=== PATIENT | female | born 1990 | race Hispanic/Latino ===

== ENCOUNTER 2018-08-23 18:42 | Emergency (ER) | payer SELFPAY ==
[2018-08-23 19:47] LABS: Absolute Lymphocytes (CBC) 2.7 K/uL (0.7-4.9); Basophils % 0.5 % (0-1.3); Eosinophils % 0.6 % (0-4.4); Hematocrit 43.3 % (36.0-45.0); MPV 8.9 fL (7.6-11.3); Monocytes % 5.8 % (3.3-12.3); RBC Red Blood Cell Count 4.84 M/uL (3.86-4.86)
[2018-08-23 19:53] LABS: Protime INR 1.07
--- NOTE | 2018-08-23 19:59 | RAD REPORT ---
EXAM DESCRIPTION: RAD - Chest Single View - 08/23/2018 7:19 pm CLINICAL HISTORY: Shortness of breath COMPARISON: None. TECHNIQUE: AP portable chest image was obtained 1917 hour . FINDINGS: Lung volumes are low. Lung dobson are clear. No failure or volume overload. Heart and vasc ulature are normal. No measurable pleural effusion and no pneumothorax. No acute bony abnormality see n. No acute aortic findings suspected. IMPRESSION: No acute cardiopulmonary process.
[2018-08-23 20:06] LABS: Urine Blood TRACE (NEG); Urine Glucose NEGATIVE (NEG); Urine Protein NEGATIVE (NEG)
[2018-08-23 20:10] LABS: ALT/SGPT 32 U/L (12-78); AST/SGOT 14 U/L (15-37); Albumin 3.9 g/dL (3.4-5.0); Alkaline Phosphatase 117 U/L (45-117); BUN Blood Urea Nitrogen 9 mg/dL (7-18); Bicarbonate 27 mmol/L (21-32); Bilirubin Direct 0.1 mg/dL (0-0.2); Bilirubin Total 0.5 mg/dL (0.2-1.0); Glucose Level 83 mg/dL (74-106); NT PRO-BNP 26 pg/mL (<125); Potassium 3.9 mmol/L (3.5-5.1); Protein, Total 7.9 g/dL (6.4-8.2); Sodium Level 137 mmol/L (136-145); Troponin (Emerg Dept Use Only) < 0.02 ng/mL (0.0-0.045)
--- NOTE | 2018-08-23 22:18 | EDPHYS ---
Physician Documentation [facility] Name: Courtney Mujica Age: 28 yrs Sex: Female : 1990 Arrival Date: 08/23/2018 Time: 18:43 Bed 13 Private MD: ED Physician Abel Quintero HPI: 08/23 19:00 This 28 yrs old Female presents to ER via Unassigned with complaints of jmm Nausea, Shortness Of Breath, Weakness. 19:00 The patient has shortness of breath at rest. Onset: The symptoms/episode began/occurred jmm gradually, this morning. Duration: The symptoms are continuous. The patient's shortness of breath is aggravated by nothing, is alleviated by nothing. Associated signs and symptoms: Pertinent positives: nausea, Pertinent negatives: non-productive cough, productive cough, fever. This is a 28 year old female with a history of hypothyroidim that presents to the ED with complaints of nausea, shortness of breath beginning this morning. SOB is not exacerbated by exertion. Patient denies chest pain. Denies fever. . 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 19:00 MS/Extremity: Negative for injury and deformity, Neuro: Negative for headache, weakness, numbness, tingling, and seizure. 19:00 Respiratory: Positive for shortness of breath. 19:00 Abdomen/GI: Positive for nausea. 19:00 All other systems are negative. Exam: 19:00 Constitutional: This is a well developed, well nourished patient who is awake, alert, jmm and in no acute distress. Head/Face: atraumatic. Eyes: EOMI, no conjunctival erythema appreciated ENT: Moist Mucus Membranes Neck: Trachea midline, Supple Chest/axilla: Normal chest wall appearance and motion. 19:00 Cardiovascular: Rate: normal, Rhythm: regular. 19:00 Respiratory: the patient does not display signs of respiratory distress, Respirations: normal, Breath sounds: are clear throughout. 19:00 Abdomen/GI: Inspection: obese Bowel sounds: normal, Palpation: abdomen is soft and non-tender, in all quadrants. 19:00 Back: ROM is normal. 19:00 Musculoskeletal/extremity: ROM: intact in all extremities. 19:00 Skin: Appearance: Color: normal in color. 19:00 Neuro: Orientation: is normal, Mentation: is normal, Memory: is normal. 19:00 Psych: Behavior/mood is pleasant, cooperative. 22:33 ECG was reviewed by the Attending Physician. [facility] Vital Signs: 18:47 BP 121 / 65; Pulse 80; Resp 19; Temp 97.6; Pulse Ox 99% on R/A; Weight 104.33 kg; aj Height 5 ft. 0 in. (152.40 cm); 19:15 BP 118 / 60; Pulse 79; Resp 17; Temp 98.8; Pulse Ox 99% ; rr5 20:15 BP 121 / 75; Pulse 81; Resp 16; Pulse Ox 99% on R/A; rr5 21:15 BP 129 / 76; Pulse 76; Resp 17; Pulse Ox 99% ; rr5 22:30 BP 123 / 65; Pulse 85; Resp 19; Temp 98.7; Pulse Ox 100% on R/A; rr5 18:47 Body Mass Index 44.92 (104.33 kg, 152.40 cm) MDM: 18:57 Patient medically screened. [facility] 22:15 Data reviewed: vital signs, nurses notes, lab test result(s), EKG, radiologic studies, [facility] plain films, ultrasound. ED course: Patient is alert and non toxic in appearance in the ED. Patient is advised to follow up with pcp for reevaluation. Patient is advised to follow up with pcp and otherwise given strict return precautions. PERC score is negative. . 08/23 18:58 Order name: Basic Metabolic Panel; Complete Time: 20:40 [facility] 08/23 18:58 Order name: CBC with Diff; Complete Time: 20:01 [facility] 08/23 18:58 Order name: LFT's; Complete Time: 20:40 [facility] 08/23 18:58 Order name: Magnesium; Complete Time: 20:40 [facility] 08/23 18:58 Order name: NT PRO-BNP; Complete Time: 20:40 [facility] 08/23 18:58 Order name: PT-INR; Complete Time: 20:01 [facility] 08/23 18:58 Order name: Troponin (emerg Dept Use Only); Complete Time: 20:40 [facility] 08/23 18:58 Order name: XRAY Chest (1 view); Complete Time: 20:09 [facility] 08/23 18:58 Order name: TSH; Complete Time: 20:40 [facility] 08/23 20:02 Order name: Urine Dipstick--Ancillary (enter results); Complete Time: 20:11 [facility] 08/23 20:02 Order name: Urine --Ancillary (enter results); Complete Time: 20:11 [facility] 08/23 20:15 Order name: T4 Free; Complete Time: 20:40 [facility] 08/23 20:55 Order name: HCG-Quantitative; Complete Time: 22:01 [facility] 08/23 20:55 Order name: Abo/rh Typing; Complete Time: 22:01 [facility] 08/23 18:58 Order name: EKG; Complete Time: 19:01 [facility] 08/23 18:58 Order name: Cardiac monitoring; Complete Time: 19:46 [facility] 08/23 18:58 Order name: EKG - Nurse/Tech; Complete Time: 19:46 [facility] 08/23 18:58 Order name: IV Saline Lock; Complete Time: 19:46 [facility] 08/23 18:58 Order name: Labs collected and sent; Complete Time: 19:46 [facility] 08/23 18:58 Order name: O2 Per Protocol; Complete Time: 19:46 [facility] 08/23 18:58 Order name: O2 Sat Monitoring; Complete Time: 19:46 [facility] 08/23 18:58 Order name: Urine Dipstick-Ancillary (obtain specimen); Complete Time: 19:46 [facility] 08/23 20:55 Order name: US Transvaginal Ob jmm EC:33 Rate is 68 beats/min. Rhythm is regular. QRS [place] is Normal. TN interval is normal. QRS jmm interval is normal. QT interval is normal. No Q waves. T waves are Normal. No ST changes noted. Administered Medications: No medications were administered Disposition: 08/24 07:30 Co-signature as Attending Physician, Abel Quintero MD I agree with the assessment and kdr plan of care. Disposition: 08/23/18 22:17 Discharged to Home. Impression: Dyspnea. - Condition is Stable. - Discharge Instructions: Hypothyroidism, Shortness of Breath. - Medication Reconciliation Form, Thank You Letter, Antibiotic Education, Prescription Opioid Use form. - Follow up: Private Physician; When: 2 - 3 days; Reason: Recheck today's complaints, Continuance of care, Re-evaluation by your physician. Signatures: Dispatcher [employer] EDRita Medina, RN RN Abel Guevara MD MD kdr Mickail, Joel, PA PA jmm Roque, Raymond, RN RN rr5 Corrections: (The following items were deleted from the chart) 08/23 22:33 22:17 08/23/2018 22:17 Discharged to Home. Impression: Dyspnea. Condition is Stable. rr5 Forms are Medication Reconciliation Form, Thank You Letter, Antibiotic Education, Prescription Opioid Use. Follow up: Private Physician; When: 2 - 3 days; Reason: Recheck today's complaints, Continuance of care, Re-evaluation by your physician. kylee
--- NOTE | 2018-08-23 22:18 | ER ---
Nurse's Notes [facility] Name: Courtney Mujica Age: 28 yrs Sex: Female : 1990 Arrival Date: 08/23/2018 Time: 18:43 Bed 13 Private MD: Diagnosis: Dyspnea Presentation: 08/23 18:46 Presenting complaint: Patient states: Nausea, weakness generalized, SOB since this AM. aj Care prior to arrival: None. 18:46 Acuity: [place] 3 aj Triage Assessment: 18:47 General: Appears in no apparent distress. uncomfortable, Behavior is calm, cooperative, aj appropriate for age. Neuro: Level of Consciousness is awake, alert, obeys commands, Oriented to person, place, time, situation, Appropriate for age. Respiratory: Reports shortness of breath. GI: Reports nausea. 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 Denies injuries from another. Nutritional rr5 screening: No deficits noted. Tuberculosis screening: No symptoms or risk factors identified. Fall Risk IV access (20 points). Total Arboleda Fall Scale indicates No Risk (0-24 pts). Assessment: 19:15 General: Appears in no apparent distress. comfortable, Behavior is calm, cooperative, rr5 appropriate for age, Reports weakness. Pain: Denies pain. Neuro: Level of Consciousness is awake, alert, obeys commands, Oriented to person, place, time, situation, Appropriate for age Reports weakness in body. 19:15 Cardiovascular: Capillary refill < 3 seconds Patient's skin is warm and dry. rr5 Respiratory: Reports shortness of breath since today morning Airway is patent Respiratory effort is even, unlabored, Respiratory pattern is regular, symmetrical. GI: Abdomen is round obese, Reports nausea. : No signs and/or symptoms were reported regarding the genitourinary system. EENT: No signs and/or symptoms were reported regarding the EENT system. Derm: Skin is intact, Skin temperature is warm. Musculoskeletal: Circulation, motion, and sensation intact. Capillary refill < 3 seconds. 20:00 Reassessment: Patient appears in no apparent distress at this time. Patient is alert, rr5 oriented x 3, equal unlabored respirations, skin warm/dry/pink. awaiting for results. 21:15 Reassessment: Patient appears in no apparent distress at this time. no complaints made rr5 awaiting for ultrasound procedure. positive for urine blood extraction draw and sent to laboratory. 22:30 Reassessment: Patient appears in no apparent distress at this time. Patient is alert, rr5 oriented x 3, equal unlabored respirations, skin warm/dry/pink. discharge instruction given and explained without complaints made. Vital Signs: 18:47 BP 121 / 65; Pulse 80; Resp 19; Temp 97.6; Pulse Ox 99% on R/A; Weight 104.33 kg; aj Height 5 ft. 0 in. (152.40 cm); 19:15 BP 118 / 60; Pulse 79; Resp 17; Temp 98.8; Pulse Ox 99% ; rr5 20:15 BP 121 / 75; Pulse 81; Resp 16; Pulse Ox 99% on R/A; rr5 21:15 BP 129 / 76; Pulse 76; Resp 17; Pulse Ox 99% ; rr5 22:30 BP 123 / 65; Pulse 85; Resp 19; Temp 98.7; Pulse Ox 100% on R/A; rr5 18:47 Body Mass Index 44.92 (104.33 kg, 152.40 cm) ED Course: 18:43 Patient arrived in ED. as 18:47 Triage completed. aj 18:47 Arm band placed on right wrist. aj 18:50 Vu Car PA is PHCP. [facility] 18:50 Abel Quintero MD is Attending Physician. [facility] 18:59 Montse Giron, MAITE is Primary Nurse. ls4 19:19 XRAY Chest (1 view) In Process Unspecified. EDMS 19:21 EKG done, by ED staff, reviewed by Vu NÚÑEZ. ag4 19:35 Inserted saline lock: 20 gauge in right antecubital area, using aseptic technique. rr5 Blood collected. 19:45 Patient has correct armband on for positive identification. Placed in gown. Bed in low rr5 position. Call light in reach. Side rails up X2. wine consultant on. Pulse ox on. NIBP on. 22:01 US Transvaginal Ob In Process Unspecified. EDMS 22:30 No provider procedures requiring assistance completed. IV discontinued, intact, rr5 bleeding controlled, No redness/swelling at site. Pressure dressing applied. Administered Medications: No medications were administered Outcome: 22:17 Discharge ordered by . kylee 22:30 Discharged to home ambulatory, with family. rr5 22:30 Condition: stable 22:30 Discharge instructions given to patient, Instructed on discharge instructions, follow up and referral plans. Demonstrated understanding of instructions, follow-up care. 22:33 Patient left the ED. rr5 Signatures: Dispatcher [employer] Rita De La Cruz, Vu Crain RN, PA PA jmm Martinez, Amelia as Stewart, Lisa, RN RN ls4 Juan Khan RN RN rr5 [place] Syed ag4
--- NOTE | 2018-08-24 07:33 | EKG ---
Test Date: 2018-08-23 Test Time: 19:20:23 Counselor [place]: [id number] MEASUREMENT RESULTS: Intervals: Rate: 68 IL: 146 QRSD: 74 QT: 396 QTc: 421 [place]: P: 40 IL: 146 QRS: 40 T: 41 INTERPRETIVE STATEMENTS: Normal sinus rhythm with sinus arrhythmia Normal ECG No previous ECG available for comparison Electronically Signed On 08-24-18 07:32:17 CDT by Omega Nazario
--- NOTE | 2018-08-24 08:28 | RAD REPORT ---
EXAM DESCRIPTION: US - Transvaginal OB - 08/23/2018 10:00 pm CLINICAL HISTORY: Pelvic pain, , beta HCG [id number] COMPARISON: None. TECHNIQUE: Endovaginal sonography performed. FINDINGS: Slightly irregularly-shaped intrauterine gestational sac identified with yolk sac visible. No pole identifiable at this time. Gestational sac average diameter corresponds to a 6 week 3 day age. Calculated DANTE is 04/15/2019 No intrauterine mass or hematoma. Left ovary was not identifiable. No left adnexal mass was visualized. Right ovary is normal size. No right adnexal abnormality seen. IMPRESSION: A 6 week 3 day slightly irregular gestational sac is seen in the fundal portion of the u terus. Yolk sac is identified but no pole seen at this time. No adnexal abnormality to suspect ectopic . Follow-up endovaginal sonography can be performed as warranted to monitor for pole development.
== END 2018-08-23 22:33 | disposition home or self-care (01) ==
LOC: ER 18:42
DX: R06.00 Dyspnea, unspecified (principal)
CPT/HCPCS: 36415; 71045; 76817; 80048; 80076; 81003; 81025; 83735; 83880; 84439; 84443; 84484; 84702; 85025; 85610; 86900; 86901; 93005; 99284